=== PATIENT | female | born 1975 | race Two or more races ===

== ENCOUNTER 2021-05-15 16:08 | Emergency (ER) | payer MEDICAID, OTHER ==
[~2021-05-15] VITALS: Ht 154.9 cm; Wt 112.9 kg
[2021-05-15] MEDS ORDERED: KETOROLAC TROMETH 60MG/2ML VIAL IM ONE (17:00)
[2021-05-15 17:22] VITALS: BP 120/52
== END 2021-05-15 17:40 | disposition home or self-care (01) ==
LOC: ER 16:08
DX: S14.3XXD Injury of brachial plexus, subsequent encounter (principal); M79.602 Pain in left arm; V43.02XD Car driver injured in collision with other type car in nontraffic accident, subsequent encounter; Z76.0 Encounter for issue of repeat prescription
CPT/HCPCS: 96372; 99283; J1885

== ENCOUNTER 2021-11-04 12:16 | Inpatient (IN) | payer MEDICAID ==
[~2021-11-04] VITALS: Ht 157.5 cm; Wt 118.6 kg
[2021-11-04] MEDS ORDERED: SODIUM CHLORIDE 0.9% 1,000 ML IV ONE (12:45)
[2021-11-04 13:37] LABS: Basophils # (auto) 0.1 10 ^3/uL (0-0.2); Eosinophils # (auto) 0.1 10 ^3/uL (0-0.8); Hemoglobin 13.5 g/dL (12.2-16.2); Lymphocytes # (auto) 2.1 10 ^3/uL (0.4-5.4); Neutrophils # (auto) 3.7 10 ^3/uL (1.6-8.6)
[2021-11-04 13:39] LABS: Basophils % (auto) 1.3 % (0.0-2.0); Eosinophils % (auto) 1.9 % (0.0-7.0); Hematocrit 43.1 % (36.0-46.0); Lymphocytes % (auto) 33.6 % (10.0-50.0); Mean Corpuscular Hemoglobin 26.3 pg (28.0-32.0); Mean Corpuscular Hgb Conc. 31.3 g/dL (32.0-36.0); Mean Corpuscular Volume 83.8 fL (80.0-100.0); Monocytes # (auto) 0.3 10 ^3/uL (0-1.3); Monocytes % (auto) 4.2 % (0.0-12.0); Nucleated Red Blood Cells % 0.2 %; Red Blood Cells 5.14 10^6/uL (4.0-5.20); Red Cell Distribution Width 15.1 % (11.8-14.3); White Blood Cell 6.3 10^3/uL (4.4-10.8)
[2021-11-04 13:59] LABS: Albumin 3.8 g/dL (3.4-5.0); BUN/Creatinine Ratio 10.9; Potassium 4.2 mmol/L (3.5-5.1)
[2021-11-04 14:02] LABS: Bilirubin, Total 0.4 mg/dL (0.2-1.0); Total Protein 8.9 g/dL (6.4-8.2)
[2021-11-04] MEDS ORDERED: SODIUM CHLORIDE 0.9% 1,000 ML IVB ONE (14:30)
[2021-11-04] MEDS ORDERED: PROMETHAZINE HCL 25 MG/ML 1ML IV PRN (14:30)
[2021-11-04 15:01] LABS: Magnesium 2.3 mg/dL (1.6-2.6)
[2021-11-04 15:21] LABS: Urine Bacteria NONE SEEN /hpf (None Seen); Urine Blood Negative /uL (Negative); Urine Mucus FEW (None Seen); Urine WBC 1 /hpf (0 - 5)
[2021-11-04 15:33] LABS: Alcohol, Urine < 3.0 mg/dL (0-10); Amphetamine Screen, Urine NEGATIVE (NEGATIVE); Barbiturate Scree,Urine NEGATIVE (NEGATIVE); Benzodiazephine Screen, Urine NEGATIVE (NEGATIVE); Cannabinoid Screen, Urine NEGATIVE (NEGATIVE); Cocaine Screen, Urine NEGATIVE (NEGATIVE); Opiate Scree,Urine NEGATIVE (NEGATIVE); Phencyclidine Screen, Urine NEGATIVE (NEGATIVE)
[2021-11-04] MEDS ORDERED: DOCUSATE SOD 100 MG CAP PO PRN (19:00)
[2021-11-04] MEDS ORDERED: ACETAMINOPHEN 325 MG TAB PO PRN (19:00)
[2021-11-04] MEDS ORDERED: NITROGLYCERIN 0.4 MG SL TAB SL PRN (19:00)
[2021-11-04] MEDS ORDERED: SODIUM CHLORIDE 0.9% 1,000 ML IV SCH (19:00)
[2021-11-04] MEDS ORDERED: MORPHINE SULFATE INJ 2 MG/ml SYRG IV PRN (19:00)
[2021-11-04] MEDS ORDERED: ONDANSETRON HCL 4 MG/2 ML VIAL IV PRN (19:00)
[2021-11-04] MEDS ORDERED: HYDROcodone-ACET 5/325MG TAB PO PRN (19:00)
[2021-11-04] MEDS ORDERED: ETOD400T3 PO (20:31)
[2021-11-04] MEDS ORDERED: AMLO-489 PO (20:31)
[2021-11-04] MEDS ORDERED: PREG100C PO (20:31)
[2021-11-04] MEDS ORDERED: AMIT1TAB35 PO (20:31)
[2021-11-04] MEDS: D5W/SOD CHL 0.45% 1,000 ML IV SCH ×3 (21:11→22:02)
[2021-11-04] MEDS ORDERED: hydrALAZINE HCL 20 MG/ML VL IV PRN (21:45)
[2021-11-04] MEDS: SODIUM CHLORIDE 0.9% 1,000 ML IV SCH (21:45)
[2021-11-04] MEDS ORDERED: InsuLIN REG 1unit/0.01ml Soln (100units/ml) ONE (22:34)
[2021-11-04 22:51] LABS: BUN/Creatinine Ratio 8.7; Calcium 8.2 mg/dL (8.5-10.1); Potassium 4.1 mmol/L (3.5-5.1)
[2021-11-04] MEDS ORDERED: InsuLIN R (HUMAN) 100 UNITS in SODIUM CHL 0.9% 99 ML IV SCH (23:00)
[2021-11-04] MEDS ORDERED: DEXTROSE (50%) 50ML SYRG IV PRN (23:00)
[2021-11-04] MEDS: ACCU-CHEK COMFORT CURVE STRIP VI SCH (23:56)
[2021-11-05] MEDS: ACCU-CHEK COMFORT CURVE STRIP VI SCH ×9 (01:33→17:00)
[2021-11-05] MEDS: D5W/SOD CHL 0.45% 1,000 ML IV SCH ×2 (01:35→17:45)
[2021-11-05] MEDS: SODIUM CHLORIDE 0.9% 1,000 ML IV SCH ×2 (01:40→02:58)
[2021-11-05 03:03] LABS: BUN/Creatinine Ratio 8.7; Calcium 8.2 mg/dL (8.5-10.1); Potassium 3.9 mmol/L (3.5-5.1)
[2021-11-05 09:57] LABS: Basophils # (auto) 0.1 10 ^3/uL (0-0.2); Eosinophils # (auto) 0.2 10 ^3/uL (0-0.8); Monocytes # (auto) 0.4 10 ^3/uL (0-1.3); Neutrophils # (auto) 2.6 10 ^3/uL (1.6-8.6); Red Cell Distribution Width 14.8 % (11.8-14.3); White Blood Cell 5.4 10^3/uL (4.4-10.8)
[2021-11-05 09:59] LABS: Basophils % (auto) 1.3 % (0.0-2.0); Eosinophils % (auto) 3.6 % (0.0-7.0); Hematocrit 36.6 % (36.0-46.0); Hemoglobin 11.7 g/dL (12.2-16.2); Lymphocytes # (auto) 2.1 10 ^3/uL (0.4-5.4); Lymphocytes % (auto) 39.5 % (10.0-50.0); Mean Corpuscular Hemoglobin 26.1 pg (28.0-32.0); Mean Corpuscular Volume 81.7 fL (80.0-100.0); Monocytes % (auto) 7.7 % (0.0-12.0); Neutrophils % (auto) 47.9 % (37.0-80.0); Nucleated Red Blood Cells % 0.1 %; Red Blood Cells 4.48 10^6/uL (4.0-5.20)
[2021-11-05 10:11] LABS: BUN/Creatinine Ratio 8.3; Calcium 8.5 mg/dL (8.5-10.1); Potassium 3.7 mmol/L (3.5-5.1)
[2021-11-05] MEDS ORDERED: DEXTROSE (50%) 50ML SYRG IV PRN (11:30)
[2021-11-05] MEDS ORDERED: INSULIN LANTUS (GLARGINE) 1 /0.01ml (100units/ml) SC ONE (12:00)
[2021-11-05] MEDS: InsuLIN REG 1unit/0.01ml Soln (100units/ml) SC SCH ×2 (12:06→17:00)
[2021-11-05] MEDS ORDERED: INSLANTI SC (12:29)
[2021-11-05] MEDS ORDERED: INSREGI SC (12:29)
[2021-11-05 13:00] VITALS: BP 128/85
[2021-11-05 14:52] LABS: BUN/Creatinine Ratio 8.9; Calcium 8.6 mg/dL (8.5-10.1); Potassium 3.7 mmol/L (3.5-5.1)
[2021-11-05 17:00] VITALS: BP 106/60
[2021-11-05 18:54] LABS: Calcium 8.8 mg/dL (8.5-10.1); Potassium 3.8 mmol/L (3.5-5.1)
[2021-11-05 18:56] LABS: BUN/Creatinine Ratio 8.9
[2021-11-06] MEDS ORDERED: INSULIN LANTUS (GLARGINE) 1 /0.01ml (100units/ml) SC SCH (10:00)
== END 2021-11-05 21:24 | disposition home or self-care (01) | DRG 420 ==
LOC: ER 12:16 → TELE 18:47 → TELE-CENTR 11-05 13:43
PROVIDERS: ADMIT Internal Medicine; ATTEND Internal Medicine
DX: E11.10 Type 2 diabetes mellitus with ketoacidosis without coma (principal); N17.9 Acute kidney failure, unspecified; E66.9 Obesity, unspecified; Z20.822 Contact with and (suspected) exposure to COVID-19; I10 Essential (primary) hypertension; Z90.710 Acquired absence of both cervix and uterus; Z88.8 Allergy status to other drugs, medicaments and biological substances; Z68.42 Body mass index [BMI] 45.0-49.9, adult; Z90.49 Acquired absence of other specified parts of digestive tract
CPT/HCPCS: 36415; 71046; 80048; 80053; 80307; 81001; 82010; 82962; 83036; 83690; 83735; 85025; 93005; 96360; 96361; G0378; J1815

== ENCOUNTER 2022-07-01 14:57 | Emergency (ER) | payer MEDICAID ==
[~2022-07-01] VITALS: Ht 165.1 cm; Wt 124.7 kg
[~2022-07-01 14:57] MED LIST: AMIT1TAB35 PO; AMLO-489 PO; ETOD400T3 PO; INSLANTI SC; INSREGI SC; PREG100C PO
[2022-07-01] MEDS ORDERED: ONDANSETRON HCL 4 MG/2 ML VIAL IV ONE (15:30)
[2022-07-01] MEDS ORDERED: MORPHINE SULFATE 4 MG/ML SYR/VIAL IV ONE (15:30)
[2022-07-01 15:56] LABS: Basophils # (auto) 0 10 ^3/uL (0-0.2); Eosinophils # (auto) 0.1 10 ^3/uL (0-0.8); Lymphocytes # (auto) 1.6 10 ^3/uL (0.4-5.4); Monocytes # (auto) 0.2 10 ^3/uL (0-1.3); White Blood Cell 7.9 10^3/uL (4.4-10.8)
[2022-07-01 15:57] LABS: Basophils % (auto) 0.6 % (0.0-2.0); Eosinophils % (auto) 0.8 % (0.0-7.0); Hematocrit 39.9 % (36.0-46.0); Hemoglobin 12.8 g/dL (12.2-16.2); Lymphocytes % (auto) 19.7 % (10.0-50.0); Mean Corpuscular Hemoglobin 26.4 pg (28.0-32.0); Mean Corpuscular Hgb Conc. 32.2 g/dL (32.0-36.0); Monocytes % (auto) 2.5 % (0.0-12.0); Neutrophils # (auto) 6.1 10 ^3/uL (1.6-8.6); Neutrophils % (auto) 76.4 % (37.0-80.0); Red Blood Cells 4.87 10^6/uL (4.0-5.20); Red Cell Distribution Width 14.8 % (11.8-14.3)
[2022-07-01 16:04] LABS: INR 0.97 (0.9-1.15); Partial Thromboplastin Time 28.9 sec (24.6-33.4)
[2022-07-01 16:20] LABS: Albumin 3.3 g/dL (3.4-5.0); Calcium 9.2 mg/dL (8.5-10.1)
[2022-07-01 16:24] LABS: Bilirubin, Total 0.3 mg/dL (0.2-1.0); Total Protein 8.3 g/dL (6.4-8.2)
[2022-07-01] MEDS ORDERED: cloNIDine HCL 0.1 MG TAB PO ONE (19:30)
[2022-07-01 19:44] LABS: Urine Bacteria FEW /hpf (None Seen); Urine Blood Negative /uL (Negative); Urine Specific Gravity 1.018 (1.001-1.035); Urine WBC 1 /hpf (0 - 5)
[2022-07-01 21:17] VITALS: BP 135/98
[2022-07-01 22:47] LABS: Benzodiazephine Screen, Urine NEGATIVE (NEGATIVE); Cocaine Screen, Urine NEGATIVE (NEGATIVE); Opiate Scree,Urine NEGATIVE (NEGATIVE); Phencyclidine Screen, Urine NEGATIVE (NEGATIVE)
[2022-07-01 23:29] LABS: Alcohol, Urine 5.9 mg/dL (0-10); Amphetamine Screen, Urine NEGATIVE (NEGATIVE); Barbiturate Scree,Urine NEGATIVE (NEGATIVE); Cannabinoid Screen, Urine NEGATIVE (NEGATIVE)
== END 2022-07-01 21:23 | disposition home or self-care (01) ==
LOC: ER 14:57
DX: S43.032A Inferior subluxation of left humerus, initial encounter (principal); R51.9 Headache, unspecified; I10 Essential (primary) hypertension; X58.XXXA Exposure to other specified factors, initial encounter; Y93.89 Activity, other specified; Y92.89 Other specified places as the place of occurrence of the external cause; Y99.8 Other external cause status
CPT/HCPCS: 36415; 70450; 73030; 80053; 80307; 80320; 81001; 81025; 85025; 85610; 85730; 87040; 96374; 96375; 99285; J2270; J2405

== ENCOUNTER 2024-02-10 07:02 | Emergency (ER) | payer MEDICARE, MEDICAID ==
[~2024-02-10] VITALS: Ht 154.9 cm; Wt 117.6 kg
[~2024-02-10 07:02] MED LIST changes: +ACET-6 PO; +AMIT-118 PO; -AMIT1TAB35 PO; -AMLO-489 PO; +ATOR20TA PO; +CELE1CAP27 PO; +CIPR500T4 PO; +DOXY1CAP57 PO; +ETOD1TAB60 PO; -ETOD400T3 PO; +FLUC100T PO; +FURO40TA4 PO; +GLIP10TA9 PO; +ISOS1TAB28 PO; +LISI10TA34 PO; +MORP30TA PO; +POTA-215 PO; -PREG100C PO; +PREG100C66 PO; +SEMA2INJ3 SC; +TRAZ-228 PO
[2024-02-10 08:21] VITALS: BP 132/66; PULSE 86; RESP 18; TEMP 97.7; O2SAT 98
[2024-02-10] MEDS ORDERED: NAPR-746 PO (09:13)
[2024-02-10] MEDS: KETOROLAC TROMETH 60MG/2ML VIAL IM ONE (09:22)
== END 2024-02-10 09:24 | disposition home or self-care (01) ==
LOC: ER 07:02
DX: M79.622 Pain in left upper arm (principal); I10 Essential (primary) hypertension; E11.9 Type 2 diabetes mellitus without complications; E78.5 Hyperlipidemia, unspecified; Z87.81 Personal history of (healed) traumatic fracture; Z98.890 Other specified postprocedural states; Z88.6 Allergy status to analgesic agent; Z91.018 Allergy to other foods; Z79.899 Other long term (current) drug therapy
CPT/HCPCS: 73060; 93971; 96372; 99285; J1885

== ENCOUNTER 2024-05-28 01:26 | Emergency (ER) | payer MEDICARE, MEDICAID ==
[~2024-05-28] VITALS: Ht 154.9 cm; Wt 115.4 kg
[~2024-05-28 01:26] MED LIST changes: +NAPR-746 PO
[2024-05-28 03:21] VITALS: BP 157/77; PULSE 102; RESP 16; TEMP 98.1; O2SAT 100
[2024-05-28] MEDS ORDERED: CEPH500C PO (03:28)
--- NOTE | 2024-05-28 03:30 | ED.PDOC ---
Musculoskeletal HPI Comments This is a 48-year-old female presents to the ED chief complaint left great toe pain. Patient states around 2 days ago she had a pedicure and since her left great toe around the nail and the cuticle and has been swollen, tender and red. Reports history of diabetes which she states is controlled insulin. She also notes she has an upcoming surgery in 2 days. Denies fevers, chills, nausea or vomiting. Chief Complaint: Lower Extremity Time Seen by MD: 01:48 Primary Care Provider: DR JACKSON Reviewed Notes: Nurses Notes, Medications, Allergies Allergies: Coded Allergies: Aspirin (Verified Allergy, Unknown, 05/15/21) Chocolate (Verified Allergy, Unknown, 05/15/21) Uncoded Allergies: CONTRAST (Allergy, Unknown, 02/10/24) Home Meds Active Scripts Cephalexin Monohydrate (Cephalexin) 500 Mg Cap, 500 MG PO TID for 5 Days, #15 CAP Prov:DOMINIQUE KEYS CUTTER V GROOVE 05/28/24 Naproxen (Naproxen) 500 Mg Tab, 500 MG PO BID, #30 TAB Prov:MURTAZA URENA PA 02/10/24 Ciprofloxacin Hcl (Ciprofloxacin Hcl) 500 Mg Tab, 1 TAB PO BID for 5 Days, #10 TAB Prov:AUGUSTINE ALVA BUSINESS ANALYST SALES [employer]PERATIONS 09/12/23 Fluconazole (Diflucan) 100 Mg Tab, 100 MG PO DAILY for 2 Days, #2 TAB Prov:AUGUSTINE ALVA BUSINESS ANALYST [employer]PERATIONS 09/12/23 Isosorbide Mononitrate (Isosorbide Mononitrate Er) 30 Mg Tab, 1 TAB PO DAILY, #30 TAB 5 Refills Prov:AUGUSTINE ALVA BUSINESS ANALYST [employer]PER[employer] 09/12/23 Insulin Regular (Human) (Novolin R) 100 Unit/Ml Inj, 1-10 UNITS SC ACHS, #1 INJ 5 Refills 1-10 units per sliding scale ACHS Prov:ROBI FAJARDO MD 11/05/21 Insulin Glargine (Lantus) 100 Unit/Ml Inj, 20 UNITS SC HS, #1 INJ 5 Refills Prov:ROBI FAJARDO MD 11/05/21 Reported Medications Lisinopril (Lisinopril) 10 Mg Tab, 10 MG PO DAILY, MG 09/09/23 Potassium Chloride (Klor-Con M10) 10 Meq Tab, 1 TAB PO DAILY, TAB 09/09/23 Semaglutide (Ozempic) 2 Mg/3 Ml Inj, SC 09/09/23 Trazodone Hcl (Trazodone Hcl) 100 Mg Tab, 1 TAB PO 09/09/23 Pregabalin (Pregabalin) 100 Mg Cap, 1 CAP PO TID 09/09/23 Furosemide (Furosemide) 40 Mg Tab, 1 TAB PO DAILY 09/09/23 Celecoxib (Celecoxib) 100 Mg Cap, 1 CAP PO DAILY 09/09/23 Doxycycline Monohydrate (Doxycycline Monohydrate) 100 Mg Cap, 1 CAP PO BID 09/09/23 Acetaminophen (Acetaminophen Extra Stren) 500 Mg Tab, PO 09/09/23 Etodolac (Lodine) 400 Mg Tab, 400 MG PO, TAB 09/08/23 Morphine Sulfate (Morphine Sulfate) 30 Mg Tab, 1 TAB PO QID, #120 TAB 09/08/23 Atorvastatin Calcium (Lipitor) 20 Mg Tab, 1 TAB PO DAILY, #90 TAB 1 Refill 09/08/23 Glipizide (Glipizide) 10 Mg Tab, 10 MG PO for 30 Days, MG 09/08/23 Amitriptyline HCl (Amitriptyline HCl) 25 Mg Tab, 25 MG PO HS, TAB 11/04/21 Mode of Arrival: Ambulatory Past Medical History PAST MEDICAL HISTORY: DM, High Lipids, HTN Surgical History: Cholecystectomy, , Hysterectomy RUBBER TURNER History: No Pertinent RUBBER TURNER History Family History Family History: Reviewed,noncontributory to illness, Family hx of DM, Family hx of HTN Social History Smoker: Non-Smoker Alcohol: Denies ETOH Use Drugs: Denies Drug Use Lives In: Home Constitutional: denies: chills, diaphoresis, fatigue, fever, malaise, sweats, weakness, others EENTM: denies: blurred vision, double vision, ear bleeding, ear discharge, ear drainage, ear pain, ear ringing, eye pain, eye redness, hearing loss, mouth pain, mouth swelling, nasal discharge, nose bleeding, nose congestion, nose pain, photophobia, tearing, throat pain, throat swelling, voice changes, others Respiratory: denies: cough, hemoptysis, orthopnea, SOB at rest, shortness of b reath, SOB with excertion, stridor, wheezing, others Cardiovascular: denies: chest pain, dizzy spells, diaphoresis, Dyspnea on exertion, edema, irregular heart beat, left arm pain, lightheadedness, palpitations, PND, syncope, others Gastrointestinal: denies: abdomen distended, abdominal pain, blood streaked bowels, constipated, diarrhea, dysphagia, difficulty swallowing, hematemesis, melena, nausea, poor appetite, poor fluid intake, rectal bleeding, rectal pain, vomiting, others Genitourinary: denies: abnormal vagina bleeding, burning, dyspareunia, dysuria, flank pain, frequency, hematuria, incontinence, pain, , vagina discharge, urgency, others Neurological: denies: dizziness, fainting, headache, left sided numbness, left sided weakness, numbness, paresthesia, pre-existing deficit, right sided numbness, right sided weakness, seizure, speech problems, tingling, tremors, weakness, others Musculoskeletal: denies: back pain, gout, joint pain, joint swelling, muscle pain, muscle stiffness, neck pain, others Integumetry: reports: rash (Left 1st toe); denies: bruises, change in color, change in hair/nails, dryness, laceration, lesions, lumps, wounds, others Allergic/Immunocompromised: denies: Difficulty Healing, Frequent Infections, Hives, Itching, others Hematologic/Lymphatic: denies: anemia, blood clots, easy bleeding, easy bruising, swollen glands, others Endocrine: denies: excessive hunger, excessive sweating, excessive thirst, excessive urination, flushing, intolerance to cold, intolerance to heat, unexplained weight gain, unexplained weight loss, others Psychiatric: denies: anxiety, bipolar disorder, depression, hopeless, panic disorder, schizophrenia, sleepless, suicidal, others Physical Exam General Appearance: No Apparent Distress, Normal HEENT: Pharynx Normal Neck: Full Range of Motion, Non-Tender Respiratory: Lungs Clear, No Respiratory Distress, Normal Breath Sounds Cardiovascular: No Murmur, Normal Peripheral Pulses, Regular Rate/Rhythm Breast Exam: Deferred Gastrointestinal: Non Tender, Soft Genitalia: Deferred Pelvic: Deferred Rectal: Deferred Extremities: Normal capillary refill, Normal inspection, Normal range of motion, Non-tender, No pedal edema Musculoskeletal : Apperance: Normal Neurologic: Alert, photoengraver apprentice II-XII nml as Tested, No Motor Deficits, Normal Affect, Normal Mood, No Sensory Deficits Cerebellar Function: Normal Reflexes: Normal Skin: Dry, Normal Color, Warm, Other (Trace erythema and edema around left 1st digit cuticle no noted streaking or drainage tenderness to touch.) Lymphatic: No Adenopathy Was a procedure done? Was a procedure done?: No Differential Diagnosis EXT Differential Diagnosis: Cellulitis X-Ray, Labs, Meds, VS Vital Signs Date Time Temp Pulse Resp B/P (MAP) Pulse Ox O2 Delivery O2 Flow Rate FiO2 05/28/24 03:21 98.1 102 16 157/77 (103) 100 98.1 05/28/24 03:21 102 16 100 Room Air 05/28/24 01:40 98.1 100 16 157/77 (103) 100 Current Medications Medications (Trade) Dose Ordered Sig/Gerald Route Start Time Stop Time Status Last Admin Ceftriaxone Sodium (Rocephin) 1,000 mg ONCE ONCE IM 05/28/24 03:30 05/28/24 03:31 DC 05/28/24 03:38 X-Ray, Labs, Meds, VS Comment Likely bacterial versus fungal. We will start patient on Keflex, Rocephin 1 g given FastTrack. Advised to continue with warm Epsom salt soaks 3 times a day to encourage drainage. He is to follow up with her PCP 2-3 days for re- evaluation as necessary. [id number] Tylenol as needed for pain. ER return precautions given. Patient indicated understanding agrees with discharge plan of care. Time of 1ST Reevaluation: 03:28 Reevaluation 1ST: Improved Patient Education/Counseling: Diagnosis, Treatment, Prognosis, Need For Follow Up Family Education/Counseling: No Family Present Departure 1 Departure Time of Disposition: 03:28 Impression: Primary Impression: Paronychia Disposition: 01 HOME / SELF CARE / HOMELESS Condition: Stable e-Prescriptions Cephalexin Monohydrate (Cephalexin) 500 Mg Cap 500 MG PO TID for 5 Days, #15 CAP Prov: DOMINIQUE KEYS 05/28/24 Discharged With: Self Critical Care Note Critical Care Time?: No Stability Stability form required: DOMINIQUE Petty May 28, 2024 03:30
[2024-05-28] MEDS: cefTRIAXone SOD 1,000 MG VL IM ONE (03:38)
[2024-05-28] MEDS: LIDOCAINE 1% HCL (LOCAL ANESTH.) INJ 20ML MDV ID ONE (03:38)
== END 2024-05-28 03:52 | disposition home or self-care (01) ==
LOC: ER 01:26
DX: L03.032 Cellulitis of left toe (principal); E11.9 Type 2 diabetes mellitus without complications; I10 Essential (primary) hypertension; Z79.1 Long term (current) use of non-steroidal anti-inflammatories (NSAID); Z79.899 Other long term (current) drug therapy; Z88.6 Allergy status to analgesic agent; Z90.49 Acquired absence of other specified parts of digestive tract; Z90.710 Acquired absence of both cervix and uterus
CPT/HCPCS: 96372; 99283; J0696

== ENCOUNTER 2024-06-17 09:54 | Emergency (ER) | payer OTHER, MEDICAID ==
[~2024-06-17] VITALS: Ht 154.9 cm; Wt 113.2 kg
[~2024-06-17 09:54] MED LIST changes: +CEPH500C PO
[2024-06-17 11:38] VITALS: BP 125/54; PULSE 103; RESP 18; TEMP 96.8; O2SAT 99
[2024-06-17] MEDS ORDERED: TRIO1TP EX (12:10)
--- NOTE | 2024-06-17 12:10 | ED.PDOC ---
History of Present Illness(SKN HPI Comments 48-year-old presents with a chief complaint of pruritus x3 days. Patient denies any fever, cough, difficulty swallowing, or shortness of breath Denies fever chills night sweats nausea vomiting diarrhea Denies persistent loss of appetite nor unintentional weight loss over the past 3 months Denies history of STI Denies cough and cold-like symptoms Denies recent travel Denies sick contact with similar rash Denies new topical creams/lotions/shampoos/detergents Denies noticing any insects Denies bruising bleeding anywhere Denies chronic skin issues or family history of skin issues Chief Complaint: Rash Time Seen by MD: 11:16 Primary Care Provider: DR JACKSON History of Present Illness: Nurses Notes, Medications, Allergies Allergies: Coded Allergies: Aspirin (Verified Allergy, Unknown, 05/15/21) Chocolate (Verified Allergy, Unknown, 05/15/21) Uncoded Allergies: CONTRAST (Allergy, Unknown, 02/10/24) Home Meds Active Scripts Triamcinolone Acetonide (Triamcinolone Acetonide) 0.1 % Cre, 1 GRAMS EX BID for 5 Days, #30 GRAMS 0 Refills Prov:TOBIN ARBOLEDA INSTRUCTOR WARPER 06/17/24 Cephalexin Monohydrate (Cephalexin) 500 Mg Cap, 500 MG PO TID for 5 Days, #15 CAP Prov:DOMINIQUE KEYS LIGHT COIL WINDER 05/28/24 Naproxen (Naproxen) 500 Mg Tab, 500 MG PO BID, #30 TAB Prov:MURTAZA URENA PA 02/10/24 Ciprofloxacin Hcl (Ciprofloxacin Hcl) 500 Mg Tab, 1 TAB PO BID for 5 Days, #10 TAB Prov:AUGUSTINE ALVA INSTRUCTOR WARPER 09/12/23 Fluconazole (Diflucan) 100 Mg Tab, 100 MG PO DAILY for 2 Days, #2 TAB Prov:AUGUSTINE ALVA INSTRUCTOR WARPER 09/12/23 Isosorbide Mononitrate (Isosorbide Mononitrate Er) 30 Mg Tab, 1 TAB PO DAILY, #30 TAB 5 Refills Prov:AUGUSTINE ALVA INSTRUCTOR WARPER 09/12/23 Insulin Regular (Human) (Novolin R) 100 Unit/Ml Inj, 1-10 UNITS SC ACHS, #1 INJ 5 Refills 1-10 units per sliding scale ACHS Prov:ROBI FAJARDO MD 11/05/21 Insulin Glargine (Lantus) 100 Unit/Ml Inj, 20 UNITS SC HS, #1 INJ 5 Refills Prov:ROBI FAJARDO MD 11/05/21 Reported Medications Lisinopril (Lisinopril) 10 Mg Tab, 10 MG PO DAILY, MG 09/09/23 Potassium Chloride (Klor-Con M10) 10 Meq Tab, 1 TAB PO DAILY, TAB 09/09/23 Semaglutide (Ozempic) 2 Mg/3 Ml Inj, SC 09/09/23 Trazodone Hcl (Trazodone Hcl) 100 Mg Tab, 1 TAB PO 09/09/23 Pregabalin (Pregabalin) 100 Mg Cap, 1 CAP PO TID 09/09/23 Furosemide (Furosemide) 40 Mg Tab, 1 TAB PO DAILY 09/09/23 Celecoxib (Celecoxib) 100 Mg Cap, 1 CAP PO DAILY 09/09/23 Doxycycline Monohydrate (Doxycycline Monohydrate) 100 Mg Cap, 1 CAP PO BID 09/09/23 Acetaminophen (Acetaminophen Extra Stren) 500 Mg Tab, PO 09/09/23 Etodolac (Lodine) 400 Mg Tab, 400 MG PO, TAB 09/08/23 Morphine Sulfate (Morphine Sulfate) 30 Mg Tab, 1 TAB PO QID, #120 TAB 09/08/23 Atorvastatin Calcium (Lipitor) 20 Mg Tab, 1 TAB PO DAILY, #90 TAB 1 Refill 09/08/23 Glipizide (Glipizide) 10 Mg Tab, 10 MG PO for 30 Days, MG 09/08/23 Amitriptyline HCl (Amitriptyline HCl) 25 Mg Tab, 25 MG PO HS, TAB 11/04/21 Information Source: Patient Mode of Arrival: Ambulatory Past Medical History PAST MEDICAL HISTORY: DM, High Lipids, HTN Surgical History: Cholecystectomy, , Hysterectomy ENT PHYSICIAN History: No Pertinent ENT PHYSICIAN History Family History Family History: Reviewed,noncontributory to illness, Family hx of DM, Family hx of HTN Social History Smoker: Non-Smoker Alcohol: Denies ETOH Use Drugs: Denies Drug Use Lives In: Home All Other Systems: Reviewed and Negative (Per HPI) Physical Exam General Appearance: No Apparent Distress, Normal HEENT: Normal ENT Inspection, Pharynx Normal, TMs Normal Neck: Full Range of Motion, Non-Tender, Normal, Normal Inspection Respiratory: Chest Non-Tender, Lungs Clear, No Accessory Muscle Use, No Respiratory Distress, Normal Breath Sounds Cardiovascular: No Edema, No JVD, No Murmur, No Gallop, Normal Peripheral Pulses, Regular Rate/Rhythm Breast Exam: Deferred Gastrointestinal: No Organomegaly, Non Tender, No Pulsatile Mass, Normal Bowel Sounds, Soft Genitalia: Deferred Pelvic: Deferred Rectal: Deferred Extremities: No calf tenderness, Normal capillary refill, Normal inspection, Normal range of motion, Non-tender, No pedal edema Musculoskeletal : Apperance: Normal Neurologic: Alert, etcher aircraft II-XII nml as Tested, No Motor Deficits, Normal Affect, Normal Mood, No Sensory Deficits Cerebellar Function: Normal Reflexes: Normal Skin: Dry, Normal Color, Rash (pruritic rash), Warm Lymphatic: No Adenopathy Was a procedure done? Was a procedure done?: No Differential Diagnosis (INTG) Differential Diagnosis: Contact Dermatitis X-Ray, Labs, Meds, VS Vital Signs Date Time Temp Pulse Resp B/P (MAP) Pulse Ox O2 Delivery O2 Flow Rate FiO2 06/17/24 11:38 103 18 99 Room Air 06/17/24 11:38 96.8 103 18 125/54 (77) 99 96.8 06/17/24 10:04 96.8 103 18 125/54 (77) 99 X-Ray, Labs, Meds, VS Comment Patient is stable for discharge at this time. External notes reviewed. Test results and diagnostic imaging interpreted. All diagnostic findings, discharge care, education and instructions provided Follow-up with PCP in 2 to 3 days Patient verbalized understanding and agreed to treatment plan Vital signs stable, afebrile, no acute distress noted Patient ambulatory with strong steady gait Advised to return precautions for any new or worsening symptoms, return to ER immediately for re-evaluation Patient is aware that the purpose of this visit was for an acute medical emergency requiring emergent stabilization. Chronic conditions, including malignancies have not been ruled out. Patient is instructed to follow up with PCP as directed and discharge instructions for continued care and workup. If unable to arrange follow-up, patient is to return to the emergency department for reassessment. Patient (parent or legal guardian if applicable) was given verbal and written discharge instructions and acknowledges understanding. Time of 1ST Reevaluation: 12:00 Reevaluation 1ST: Improved Patient Education/Counseling: Diagnosis, Treatment Family Education/Counseling: Diagnosis, Treatment Departure 1 Departure Time of Disposition: 12:07 Impression: Primary Impression: Dermatitis Disposition: 01 HOME / SELF CARE / HOMELESS Condition: Stable e-Prescriptions Triamcinolone Acetonide (Triamcinolone Acetonide) 0.1 % Cre 1 GRAMS EX BID for 5 Days, #30 GRAMS 0 Refills Prov: TOBIN ARBOLEDA NP 06/17/24 Discharged With: Self Critical Care Note Critical Care Time?: No Stability Stability form required: No Heart Score Heart Score: Heart Score Response (Comments) Value History N/A 0 EKG N/A 0 Age N/A 0 Risk Factors N/A 0 Troponin N/A 0 Total 0 TOBIN ARBOLEDA NP Jun 17, 2024 12:10
== END 2024-06-17 12:10 | disposition home or self-care (01) ==
LOC: ER 09:54
DX: L30.9 Dermatitis, unspecified (principal); I10 Essential (primary) hypertension; E11.9 Type 2 diabetes mellitus without complications; E78.5 Hyperlipidemia, unspecified; Z79.899 Other long term (current) drug therapy; Z90.49 Acquired absence of other specified parts of digestive tract; Z90.710 Acquired absence of both cervix and uterus; Z98.890 Other specified postprocedural states; Z88.6 Allergy status to analgesic agent; Z88.8 Allergy status to other drugs, medicaments and biological substances